=== PATIENT | female | born 1985 | race Caucasian/White ===

== ENCOUNTER 2019-07-08 08:29 | Outpatient (CLI) | payer BC, SELFPAY ==
--- NOTE | 2019-07-08 08:33 | ECG_ITS ---
Measurements Intervals [place] Rate: 70 P: 31 MO: 136 QRS: 26 QRSD: 101 T: 20 QT: 378 QTc: 408 Interpretive Statements SINUS RHYTHM DELAYED PRECORDIAL R/S TRANSITION ST ELEVATION IN DIFFUSE LEADS- PROBABLY EARLY REPOLARIZATION BASELINE ARTIFACT- I, II, AVR, AVL, AVF BORDERLINE ECG Electronically Signed On 07-08-2019 9:02:07 CDT by Jacek Lazar D.O.
[2019-07-08 09:35] LABS: Blood Urea Nitrogen 9 mg/dL (7-17); Calcium 8.5 mg/dL (8.4-10.2); Carbon Dioxide 25 mmol/L (22-30); Chloride 103 mmol/L (98-107); Estimated Glomerular Filt Rate > 60; Glucose 295 mg/dL (65-105); Potassium 4.2 mmol/L (3.4-5.0); Sodium 136 mmol/L (137-145)
== END 2019-07-08 08:30 | disposition home or self-care (01) ==
PROVIDERS: Anesthesiology; PCP Family Medicine; Visit Provider Surgery Plastic and Reconstructive Surgery
DX: E11.9 Type 2 diabetes mellitus without complications (principal)
CPT/HCPCS: 36415; 80048; 93005

== ENCOUNTER 2019-09-17 10:26 | Outpatient (CLI) | payer BC, SELFPAY ==
--- NOTE | ~2019-09-17 | XR_ITS ---
XR cervical spine min 6V 09/17/2019 10:54 Indication: Cervicalgia. Neck pain. Procedure: 8 views of the cervical spine including flexion/extension Comparison: No prior studies for comparison. Findings: Normal cervical alignment. No significant alteration of alignment with flexion/extension. T here is a prosthetic disc device at C5-6. No prevertebral soft tissue abnormality. Odontoid process w ithin normal limits. Lung apices are unremarkable. Impression: 1: Prosthetic disc device at C5-6. Otherwise, unremarkable cervical spine. Reviewed, dictated and finalized at location A. Impression: 1: Prosthetic disc device at C5-6. Otherwise, unremarkable cervical spine.
== END 2019-09-17 10:27 | disposition home or self-care (01) ==
PROVIDERS: PCP Family Medicine; Visit Provider Nurse Practitioner Family
DX: M54.2 Cervicalgia (principal)
CPT/HCPCS: 72052

== ENCOUNTER 2020-01-20 08:30 | Outpatient (CLI) | payer BC, SELFPAY ==
--- NOTE | 2020-01-20 11:00 | NEURO_ITS ---
Patient Number: [id number] Impression: # Complains of numbness in both hands. # History of carpal tunnel release about 10 years ago. # Subtle evolving Carpal Tunnel Syndrome. # No ulnar neuropathy. # Normal needle/EMG exam. Nerve Conduction Studies Anti Sensory Summary Table Stim Site NR Peak (ms) P-T Amp (?V) Site1 Site2 Delta-P (ms) Dist (cm) Miguel (m/s) Left Median Anti Sensory (2-3nd Digit) Wrist 3.1 48.0 Wrist 2-3nd Digit 3.1 14.0 45 Wrist 3.3 72.2 Wrist 2-3nd Digit 3.1 14.0 45 Right Median Anti Sensory (2-3nd Digit) Wrist 3.0 21.3 Wrist 2-3nd Digit 3.0 14.0 47 Wrist 3.2 55.7 Wrist 2-3nd Digit 3.0 14.0 47 Left Radial Anti Sensory (Base 1st Digit) Wrist 2.0 20.0 Wrist Base 1st Digit 2.0 0.0 Right Radial Anti Sensory (Base 1st Digit) Wrist 2.3 19.4 Wrist Base 1st Digit 2.3 0.0 Left Ulnar Anti Sensory (5th Digit) Wrist 2.6 79.5 Wrist 5th Digit 2.6 14.0 54 Right Ulnar Anti Sensory (5th Digit) Wrist 2.7 20.9 Wrist 5th Digit 2.7 14.0 52 Motor Summary Table Stim Site NR Onset (ms) O-P Amp (mV) Site1 Site2 Delta-0 (ms) Dist (cm) Miguel (m/s) Left Median Motor (Abd Poll Brev) Wrist 3.3 2.5 Elbow Wrist 4.7 28.0 60 Elbow 8.0 1.8 Right Median Motor (Abd Poll Brev) Wrist 3.5 2.2 Elbow Wrist 4.5 27.0 60 Elbow 8.0 1.3 Left Ulnar Motor (Abd Dig Minimi) Wrist 2.5 8.8 A Elbow Wrist 5.0 30.0 60 A Elbow 7.5 7.6 Right Ulnar Motor (Abd Dig Minimi) Wrist 2.5 5.6 A Elbow Wrist 5.0 29.0 58 A Elbow 7.5 3.8 F Wave Studies NR F-Lat (ms) L-R F-Lat (ms) Left Median (Mrkrs) (Abd Poll Brev) 26.08 0.10 Right Median (Mrkrs) (Abd Poll Brev) 26.17 0.10 Left Ulnar (Mrkrs) (Abd Dig Min) 26.37 0.12 Right Ulnar (Mrkrs) (Abd Dig Min) 26.49 0.12 EMG Side Muscle Nerve Root Ins Act Fibs Amp Dur Recrt Comment Right 1stDorInt Ulnar C8-T1 Nml Nml Nml Nml Nml Right Ext Indicis Radial (Post Int) C7-8 Nml Nml Nml Nml Nml Right Ext Digitorum Radial (Post Int) C7-8 Nml Nml Nml Nml Nml Right BrachioRad Radial C5-6 Nml Nml Nml Nml Nml Right PronatorTeres Median C6-7 Nml Nml Nml Nml Nml Right Abd Poll Brev Median C8-T1 Nml Nml Nml Nml Nml Left 1stDorInt Ulnar C8-T1 Nml Nml Nml Nml Nml Left Ext Indicis Radial (Post Int) C7-8 Nml Nml Nml Nml Nml Left Ext Digitorum Radial (Post Int) C7-8 Nml Nml Nml Nml Nml Left BrachioRad Radial C5-6 Nml Nml Nml Nml Nml Left PronatorTeres Median C6-7 Nml Nml Nml Nml Nml Left Abd Poll Brev Median C8-T1 Nml Nml Nml Nml Nml MTDD
== END 2020-01-20 08:31 | disposition home or self-care (01) ==
PROVIDERS: PCP Family Medicine; Visit Provider Surgery Plastic and Reconstructive Surgery
DX: R20.0 Anesthesia of skin (principal)
CPT/HCPCS: 95886; 95911

== ENCOUNTER → 2020-10-05 08:00 | Outpatient (CLI) | payer MEDICARE, SELFPAY ==
--- NOTE | ~2020-10-05 | XR_ITS ---
EXAMINATION: XR wrist LT 2V, XR wrist RT 2V DATE: 10/05/2020 08:50 INDICATION: Joint pain at the bilateral wrists with malaise and fatigue. TECHNIQUE: 1. Posteroanterior and lateral views of the left wrist were obtained. 2. Posteroanterior and lateral views of the right wrist were obtained. COMPARISON: none FINDINGS: Normal alignment at the bilateral wrists. No fracture. Joint spaces remain normal. No erosions. Soft tissues are unremarkable. IMPRESSION: 1. Negative bilateral wrist radiographs. Reviewed, dictated and finalized at location A. IMPRESSION: 1. Negative bilateral wrist radiographs.
--- NOTE | ~2020-10-05 | XR_ITS ---
EXAMINATION: XR lumbar spine 2-3V EXAM DATE: 10/05/2020 08:50 INDICATION: Pain in joints, malaise and fatigue, myalgia. TECHNIQUE: Lumber spine frontal, lateral, lateral L5-S1 projections for interpretation. Comparison is made to prior examination from 05/24/2017. FINDINGS: Number than mild lumbar disc disease. There is mild lumbar facet arthropathy. There are no acute fractures identified. Paraspinal soft tissue is unremarkable. Sacrum, sacroiliac joints, sacral arcuate lines are intact. IMPRESSION: 1. Mild lumbar spondylosis. Reviewed, dictated and finalized at location B. IMPRESSION: 1. Mild lumbar spondylosis.
== END ==
PROVIDERS: PCP Family Medicine; Visit Provider Internal Medicine Rheumatology
DX: R53.81 Other malaise (principal); R53.83 Other fatigue; M79.10 Myalgia, unspecified site; M25.50 Pain in unspecified joint; M47.816 Spondylosis without myelopathy or radiculopathy, lumbar region
CPT/HCPCS: 72100; 73100

== ENCOUNTER 2020-10-06 11:49 | Outpatient (CLI) | payer MEDICARE, SELFPAY ==
--- NOTE | ~2020-10-06 | XR_ITS ---
XR hand RT 2V DATE: 10/06/2020 12:45 INDICATION: Right hand pain TECHNIQUE: AP and lateral views COMPARISON: None FINDINGS: No fracture or dislocation, periosteal reaction or bone destruction or significant joint sp shahzad narrowing or erosive change or chondrocalcinosis. IMPRESSION: No significant abnormality Reviewed, dictated and finalized at location A. IMPRESSION: No significant abnormality
--- NOTE | ~2020-10-06 | XR_ITS ---
XR hand LT 2V DATE: 10/06/2020 12:45 INDICATION: Left hand pain TECHNIQUE: AP and lateral views COMPARISON: None FINDINGS: No fracture, dislocation, periosteal reaction or bone destruction. Joint spaces are preserv ed. IMPRESSION: No significant abnormality Reviewed, dictated and finalized at location A. IMPRESSION: No significant abnormality
== END 2020-10-06 11:50 ==
PROVIDERS: PCP Family Medicine; Visit Provider Internal Medicine Rheumatology
DX: M25.50 Pain in unspecified joint (principal); M19.049 Primary osteoarthritis, unspecified hand
CPT/HCPCS: 73120

== ENCOUNTER 2021-03-12 10:19 | Outpatient (CLI) | payer MEDICARE, SELFPAY ==
--- NOTE | ~2021-03-12 | XR_ITS ---
EXAMINATION: XR knee LT 2V EXAM DATE: 03/12/2021 11:54 INDICATION: Arthritis pain of hand,Ds DNA antibody positive. TECHNIQUE: Frontal and lateral projections of the left knee. There is no prior study for comparison . FINDINGS: There are no acute left knee fractures or dislocations identified. There is no subcutaneou s gas. The soft tissue is unremarkable. There are no radiopaque foreign bodies. IMPRESSION: Unremarkable left knee exam. Reviewed, dictated and finalized at location A. 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
--- NOTE | ~2021-03-12 | XR_ITS ---
EXAMINATION: XR hand LT 2V EXAM DATE: 03/12/2021 11:54 INDICATION: Arthritis pain of hand,Ds DNA antibody positive . TECHNIQUE: Frontal and lateral projections of the left hand. Comparison is made to prior examination from 10/06/2020. FINDINGS: There are no acute left hand fractures or dislocations identified. There is no subcutaneou s gas. The soft tissue is unremarkable. There are no radiopaque foreign bodies. The joint spaces are uniform. There are no bony erosions identified. IMPRESSION: 1. Unremarkable XR hand LT 2V exam. Reviewed, dictated and finalized at location A. [employer]
--- NOTE | ~2021-03-12 | XR_ITS ---
EXAMINATION: XR knee RT 2V EXAM DATE: 03/12/2021 11:54 INDICATION: Arthritis pain of hand,Ds DNA antibody positive. Right patella fracture 2009. TECHNIQUE: Frontal and lateral projections of the right knee. Correlation is made to contralateral k nee same date. FINDINGS: There is minimal right knee tricompartmental primary osteoarthritis. There are no acute fra ctures or dislocations identified. There is no subcutaneous gas. The soft tissue is unremarkable. There are no radiopaque foreign bodies. IMPRESSION: Minimal right knee osteoarthritis. Reviewed, dictated and finalized at location A. 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
--- NOTE | ~2021-03-12 | XR_ITS ---
EXAMINATION: XR hand RT 2V EXAM DATE: 03/12/2021 11:54 INDICATION: Arthritis pain of hand,Ds DNA antibody positive. TECHNIQUE: Frontal and lateral projections of the right hand. Comparison is made to prior examinatio n from 10/06/2020. FINDINGS: The joint spaces are uniform. There are no bony erosions identified. There are no acute ri ght hand fractures or dislocations identified. There is no subcutaneous gas. The soft tissue is unr emarkable. There are no radiopaque foreign bodies. IMPRESSION: 1. Unremarkable XR hand RT 2V exam. Reviewed, dictated and finalized at location A. 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
== END 2021-03-12 10:20 ==
LOC: MICIMG 10:20
PROVIDERS: Visit Provider Internal Medicine Rheumatology
DX: R76.8 Other specified abnormal immunological findings in serum (principal); M19.049 Primary osteoarthritis, unspecified hand; Z79.899 Other long term (current) drug therapy; Z51.81 Encounter for therapeutic drug level monitoring
CPT/HCPCS: 73120; 73560

== ENCOUNTER 2022-03-20 10:01 | Outpatient (CLI) | payer OTHER, SELFPAY ==
--- NOTE | ~2022-03-20 | XR_ITS ---
XR hand RT 2V DATE: 03/20/2022 10:40 INDICATION: Polyarthralgia TECHNIQUE: AP and lateral views of right hand COMPARISON: 03/12/2021 right hand FINDINGS: Small probable chronic degenerative ossicle at the anterior aspect of the proximal interpha langeal joint of the third digit and distal interphalangeal joint of the second digit. Joint spaces appear relatively preserved throughout the right wrist and hand. No erosive change or ch ondrocalcinosis. No fracture or dislocation, periosteal reaction or bone destruction. IMPRESSION: Minimal degenerative change Reviewed, dictated and finalized at location B. 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
--- NOTE | ~2022-03-20 | XR_ITS ---
EXAM: XR knee RT 2V, XR knee LT 2V DATE: 03/20/2022 10:41 HISTORY: Polyarthralgia,malaise and fatigue . COMPARISON: None available. FINDINGS: Normal mineralization. No fracture or dislocation. No lytic or blastic lesion. Mild medial joint space narrowing bilaterally. Mild tricompartmental osteophytosis bilaterally. No erosion or pe riosteal change. Soft tissues within normal limits. IMPRESSION: Mild tricompartmental bilateral knee osteoarthritis. Reviewed, dictated and finalized at location K. T SERVICES LEAD IMPRESSION: Mild tricompartmental bilateral knee osteoarthritis.
--- NOTE | ~2022-03-20 | XR_ITS ---
XR_CERV2-3V_CR DATE: 03/20/2022 10:40 INDICATION: Polyarthralgia. Malaise, fatigue TECHNIQUE: AP, open-mouth, lateral and swimmer views COMPARISON: None FINDINGS: There is surgical interbody spinal fusion at C5-6. The remaining interspaces appear well pr eserved. C1 and C2 are normally aligned and the odontoid process is intact. No fracture or dislocation or lock ed facet or prevertebral soft tissue swelling. IMPRESSION: Status post interbody surgical fusion at C5-6 Reviewed, dictated and finalized at Location A. Reviewed, dictated and finalized at location B. 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
--- NOTE | ~2022-03-20 | XR_ITS ---
EXAM: XR sacroiliac joints min 3V DATE: 03/20/2022 10:41 HISTORY: Polyarthralgia,malaise and fatigue . COMPARISON: X-ray L-spine 10/05/2020 and 03/20/2022. FINDINGS: Decreased mineralization. No fracture or dislocation. No lytic or blastic lesion. Joint sp aces are maintained. No erosion or periosteal change. IUD over the pelvis. IMPRESSION: Normal bilateral SI joint radiograph findings. Reviewed, dictated and finalized at location K. ENT CARE PROVIDER
--- NOTE | ~2022-03-20 | XR_ITS ---
XR hand LT 2V DATE: 03/20/2022 10:40 INDICATION: Polyarthralgia TECHNIQUE: AP and lateral views of left hand COMPARISON: 03/12/2021 left hand FINDINGS: Small degenerative ossicles the anterior aspect of the proximal and distal interphalangeal joints of the third and fourth digits. No fracture or dislocation, periosteal reaction or bone destruction. No erosive change or chondrocalc inosis. Joint spaces are relatively well preserved. IMPRESSION: Minimal degenerative change Reviewed, dictated and finalized at location B. MBLY MEMBER IMPRESSION: Minimal degenerative change
--- NOTE | ~2022-03-20 | XR_ITS ---
XR lumbar spine 2-3V DATE: 03/20/2022 10:40 INDICATION: Polyarthralgia. Malaise, fatigue. Back pain. TECHNIQUE: AP, lateral, coned lateral lumbosacral views COMPARISON: 10/05/2020 lumbar spine FINDINGS: Normal alignment of lumbar spine. No fracture or bone destruction or spondylolisthesis. The included lower thoracic and lumbar pedicles are intact. Lumbar and lumbosacral interspaces are well preserved. The sacroiliac joints appear normal. IUD is noted. IMPRESSION: Negative lumbar spine Reviewed, dictated and finalized at location B. 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
== END 2022-03-20 10:02 ==
PROVIDERS: PCP Family Medicine; Visit Provider Internal Medicine Rheumatology
DX: R76.8 Other specified abnormal immunological findings in serum (principal); M25.50 Pain in unspecified joint; R53.81 Other malaise; R53.83 Other fatigue; M17.0 Bilateral primary osteoarthritis of knee; Z98.1 Arthrodesis status
CPT/HCPCS: 72040; 72100; 72202; 73120; 73560

== ENCOUNTER 2022-09-21 10:17 | Outpatient (CLI) | payer OTHER, SELFPAY ==
--- NOTE | ~2022-09-21 | XR_ITS ---
AP and oblique views of the bilateral SI joints Clinical history: Pain FINDINGS: SI joints are unremarkable. No degenerative or inflammatory/erosive change. No sclerosis. V isualized hip joints are unremarkable. IUD present. Soft tissues are unremarkable. IMPRESSION: IUD present, otherwise unremarkable exam. Reviewed, dictated and finalized at location M.
--- NOTE | ~2022-09-21 | XR_ITS ---
Right Hand Technique: PA and lateral views were obtained. Clinical History: Pain Findings: No acute fracture or dislocation is seen. Osseous alignment is anatomic. Joint spaces are p reserved. Soft tissues are unremarkable. Impression: Unremarkable right hand. Reviewed, dictated and finalized at location M. Impression: Unremarkable right hand.
--- NOTE | ~2022-09-21 | XR_ITS ---
Left ankle Technique: AP and lateral views were obtained. Clinical History: Pain Findings: No acute fracture or dislocation is seen. Osseous alignment is anatomic. Ankle mortise and other visualized joint spaces are preserved. Soft tissues are otherwise unremarkable. Impression: Unremarkable left ankle. Reviewed, dictated and finalized at location . Impression: Unremarkable left ankle.
--- NOTE | ~2022-09-21 | XR_ITS ---
Right wrist Technique: PA and lateral views were obtained. Clinical History: Pain Findings: No acute fracture or dislocation is seen. Osseous alignment is anatomic. Joint spaces are p reserved. Soft tissues are unremarkable. Impression: Unremarkable right wrist radiographs. Reviewed, dictated and finalized at location M. Impression: Unremarkable right wrist radiographs.
--- NOTE | ~2022-09-21 | XR_ITS ---
Left wrist Technique: PA and lateral views were obtained. Clinical History: Pain Findings: No acute fracture or dislocation is seen. Osseous alignment is anatomic. Joint spaces are p reserved. Soft tissues are unremarkable. Impression: Unremarkable left wrist radiographs. Reviewed, dictated and finalized at location M. Impression: Unremarkable left wrist radiographs.
--- NOTE | ~2022-09-21 | XR_ITS ---
Left Hand Technique: PA and lateral views were obtained. Clinical History: Pain Findings: No acute fracture or dislocation is seen. Osseous alignment is anatomic. Joint spaces are p reserved. Soft tissues are unremarkable. Impression: Unremarkable left hand. Reviewed, dictated and finalized at location M. Impression: Unremarkable left hand.
--- NOTE | ~2022-09-21 | XR_ITS ---
Right foot Technique: AP and lateral views were obtained. Clinical History: Pain Findings: No acute fracture or dislocation is seen. Osseous alignment is anatomic. Joint spaces are p reserved without erosive or degenerative change. Soft tissues are unremarkable. Impression: Unremarkable right foot radiographs. Reviewed, dictated and finalized at [facility]. Impression: Unremarkable right foot radiographs.
--- NOTE | ~2022-09-21 | XR_ITS ---
Right ankle Technique: AP and lateral views were obtained. Clinical History: Pain Findings: No acute fracture or dislocation is seen. Osseous alignment is anatomic. Ankle mortise and other visualized joint spaces are preserved. Soft tissues are otherwise unremarkable. Impression: Unremarkable right ankle. Reviewed, dictated and finalized at location . Impression: Unremarkable right ankle.
--- NOTE | ~2022-09-21 | XR_ITS ---
Left foot Technique: AP and lateral views were obtained. Clinical History: Pain Findings: No acute fracture or dislocation is seen. Osseous alignment is anatomic. Joint spaces are p reserved without erosive or degenerative change. Soft tissues are unremarkable. Impression: Unremarkable left foot radiographs. Reviewed, dictated and finalized at [facility]. Impression: Unremarkable left foot radiographs.
== END 2022-09-21 10:18 ==
LOC: MICIMG 10:19
PROVIDERS: PCP Family Medicine; Visit Provider Internal Medicine Rheumatology
DX: M25.50 Pain in unspecified joint (principal); M25.439 Effusion, unspecified wrist; R53.81 Other malaise; M79.10 Myalgia, unspecified site; Z97.5 Presence of (intrauterine) contraceptive device
CPT/HCPCS: 72202; 73100; 73120; 73600; 73620

== ENCOUNTER 2022-11-17 09:41 | Outpatient (CLI) | payer OTHER, SELFPAY ==
--- NOTE | ~2022-11-17 | MR_ITS ---
MRI of the left wrist Technique: Coronal T1 weighted and T2 fat sat images, axial T1-weighted, T2 fat-sat, and T1 fat-sat i mages, and sagittal proton-density, T1-weighted, and T2 fat-sat images were acquired. Following intra venous administration of 20 cc MultiHance gadolinium, T1-weighted fat-sat imaging was performed in th e axial, coronal, and sagittal planes planes. Clinical History: Effusion Findings: Scapholunate ligament is intact, and there is no widening of the scapholunate interval. Riki otriquetral ligament is intact. Central articular disc of the TFCC is intact. No evidence of perforat ion or other TFCC tear. Bone marrow signals are unremarkable. No marrow edema, fracture, or paraspinal reaction seen. Joint s paces are preserved. No erosive change identified. No distinct evidence for synovitis. No joint effus ion. Flexor tendons and carpal tunnel are unremarkable. Median nerve unremarkable. Extensor tendons are un remarkable. Visualized musculature unremarkable. No soft tissue mass or fluid collection seen. No abnormal postcontrast enhancement identified. IMPRESSION: No significant abnormality identified. Reviewed, dictated and finalized at location .
== END 2022-11-17 09:42 ==
PROVIDERS: PCP Family Medicine; Visit Provider Internal Medicine Rheumatology
DX: M25.432 Effusion, left wrist (principal)
CPT/HCPCS: 73223; A9577